=== PATIENT | female | born 1975 | race Caucasian/White ===

== ENCOUNTER 2017-08-18 01:21 | Emergency (ER) | payer MEDICAID ==
[~2017-08-18] VITALS: Ht 165.1 cm; Wt 56.0 kg
[2017-08-18 01:24] VITALS: BP 134/87
== END 2017-08-18 05:00 | disposition left against medical advice (07) ==
LOC: ER 01:21
DX: Z53.21 Procedure and treatment not carried out due to patient leaving prior to being seen by health care provider (principal)